=== PATIENT | female | born 1940 | race Two or more races ===

== ENCOUNTER 2022-12-23 09:59 | Emergency (ER) | payer MEDICARE, OTHER ==
[2022-12-23] MEDS ORDERED: Cefepime 2 GM in Sodium Chloride 0.9% 50 ML IV ONE (10:49)
[2022-12-23 11:24] LABS: CORONAVIRUS COVID-19 NAA POSITIVE (NEGATIVE); INFLUENZA A NAA NEGATIVE (NEGATIVE); INFLUENZA B NAA NEGATIVE (NEGATIVE); RESPIRATORY SYNCYTIAL VIR NAA NEGATIVE (NEGATIVE)
[2022-12-23] MEDS ORDERED: Dexamethasone 10 MG/ML SDV IVPUSH ONE (11:53)
[2022-12-23 11:56] LABS: CARBON DIOXIDE,CO2 25.4 mmol/L (21.0-32.0); POTASSIUM,K 3.7 mmol/L (3.5-5.1)
[2022-12-23] MEDS ORDERED: Iopamidol 755 MG/ML 500 ML Multipack Bottle IVPUSH ONE (13:10)
[2022-12-23] MEDS ORDERED: Acetaminophen 500 MG Tab PO ONE (13:25)
== END 2022-12-23 15:35 ==
LOC: MW.ED 09:59
DX: U07.1 COVID-19 (principal); J12.82 Pneumonia due to coronavirus disease 2019
CPT/HCPCS: 0241U; 36415; 36600; 71045; 71275; 80053; 82803; 83605; 83735; 83880; 84484; 85025; 85610; 85730; 87040; 93005; 96365; 96375; 99285; A9270; J0692; J1100; J3490; Q9967; 93010